=== PATIENT | female | born 1970 | race African-American/Black ===

== ENCOUNTER 2018-11-27 12:52 | Inpatient (IN) | payer BC, OTHER | END 2018-11-30 15:48 | disposition home or self-care (01) | LOC: JSAMEDAYSX 12:52 → JICU 22:40 → J8W 11-29 18:04 ==

== ENCOUNTER 2019-01-17 19:11 | Emergency (ER) | payer BC ==
[2019-01-17 19:32] VITALS: PULSE 64; TEMP 97.5; BMI 27.4
--- NOTE | 2019-01-17 20:29 | PDOC ---
History of Present Illness - General Chief Complaint: Injury Stated Complaint: FALL Time Seen by Provider: 01/17/19 19:37 History Source: Patient Exam Limitations: No Limitations - History of Present Illness Initial Comments: 01/18/19 06:11 HPI: 48F PMH HTN, recent c-spine surgery (11/27/18) c/o imbalance, tremors, and forgetfulness since the surgery. Pt tripped and fell today w/o head strike, LOC , or neck strain. Denies increased or new neck pain. She is concerned that her symptoms may have been exacerbated by the fall. After the surgery, patient was treated w/ amoxicillin for an ear infection but did not finish the course due to the size of the pill. Denies numbness, tingling, weakness, changes in vision/ hearing. Endorses recent chills. Denies cough, sore throat, runny nose, sick contacts. Denies SI. Pt states Dr. Clifton requesting Dr. Potter MEDS: oxycodone, diazepam Works for state, has been decreasing dose of oxycodone NKDA + occasional etoh, - smoking, - illicit drug use Past History - Past Medical History Allergies/Adverse Reactions: Allergies Allergy/AdvReac Type Severity Reaction Status Date / Time No Known Drug Allergies Allergy Verified 01/17/19 19:26 Home Medications: Ambulatory Orders Amlodipine Besylate 10 mg PO DAILY 11/24/18 Diazepam 10 mg PO BID 11/24/18 Labetalol HCl 100 mg PO BID 11/24/18 Oxycodone HCl [Oxycodone HCl ER] 10 mg PO Q4H PRN 11/24/18 Anemia: No Asthma: No Cancer: No Cardiac Disorders: Yes (enlarged heart) CVA: No COPD: No CHF: No Dementia: No Diabetes: No GI Disorders: No Disorders: No HTN: Yes Hypercholesterolemia: No Liver Disease: No Seizures: No Thyroid Disease: No - Surgical History Abdominal Surgery: No Appendectomy: No Cardiac Surgery: No Cholecystectomy: No Lung Surgery: No Neurologic Surgery: Yes (spinal fusion) Orthopedic Surgery: Yes (ARTHROSCOPY BILAT SHOULDER; LEFT WRIST SX) - Psycho Social/Smoking Cessation Hx Smoking History: Current every day smoker Have you smoked in the past 12 months: No Information on smoking cessation initiated: No Hx Alcohol Use: Yes Drug/Substance Use Hx: No Substance Use Type: Alcohol, Marijuana Hx Substance Use Treatment: No Review of Systems - Review of Systems Able to Perform ROS?: Yes Comments:: 01/18/19 06:11 ROS: CONSTITUTIONAL: ENDORSES chills, diaphoresis. Denies Fevers HEENT: Endorses imbalance. Denies photophobia, changes in vision / hearing, diplopia, blurry vision. Denies sore throat, rhinorrhea, ear pain. RESP: Denies SOB, cough CARD: Denies chest pain, palpitations GI: Denies N / V / D, abdominal pain, bloody stool, inability to tolerate PO : Denies dysuria, frequency SKIN: Denies rashes PSYCH: Endorses depressed mood due to recovery process but denies SA/SI NEURO: Denies numbness, tingling, weakness. Resting tremor of b/l hands. Is the patient limited Mauritian proficient: No *Physical Exam - Vital Signs Last Vital Signs Temp Pulse Resp BP Pulse Ox 97.5 F L 64 18 156/104 H 100 01/17/19 19:22 01/17/19 19:22 01/17/19 19:22 01/17/19 19:22 01/17/19 19:22 - Physical Exam Comments: 01/18/19 06:11 PE: VS wnl GEN: Well appearing, NAD, comfortable. AAOx3 HEENT: NC/AT, CN II-XII intact, EOMI, PERRLA. Pinpoint pupils. No facial asymmetry. Moist mucous membranes, oropharynx w/o erythema or exudates. Normal voice. Hard collar in place. CV: S1/S2, RRR, no m/r/g LUNG: CTAB, no wheezes, crackles, rales, rhonchi. GI: soft, ndnt, +BS, no guarding, no rebound. EXTREMITIES: No obvious deformities of all extremities. SKIN: warm, dry, normal turgor PSYCH: sluggish speech, flat affect, normal speech content, no SI. NEURO: 5/5 UE and LE strength b/l. Symmetric sensation b/l. No finger to nose ataxia. No pronator drift. Neg romberg. Normal gait. ED Treatment Course - LABORATORY CBC & Chemistry Diagram: 01/17/19 20:45 01/17/19 20:45 - RADIOLOGY Radiology Studies Ordered: Category Date Time Status CERVICAL SPINE CT W/O CONTR [CT] Stat CT Scan 01/17/19 20:[address] WITHOUT CONTRAST [CT] Stat CT Scan 01/17/19 20:14 Ordered Medical Decision Making - Medical Decision Making 01/17/19 20:20 MDM: 48F s/p c-spine surgery (11/27/18) c/o imbalance, tremors, and forgetfulness since procedure was done. Pt fell today w/o head strike or LOC, concerned it may have exacerbated symptoms. No new neck pain, neurologically intact. DDx - r/o traumatic fracture - CBC, CMP, etoh - UA, Ur Drug Screen - CT head and neck - f/u Dr. Clifton 01/17/19 20:[address] Clifton - CT head/neck. Brought up possibility pt might be withdrawing since she is cutting down on oxycodone. States if no medical indication, can discharge home w/ Neuro f/u (Dr. Potter) for full neurologic eval. If needs admission, reubenhomerlene and Dr. Potter c/s. 01/17/19 21:51 labs reviewed K 3.2 Replete w/ k-dur EKG 01/17/19 21:00 HR 71 IN 200 QRS 88 QTc 486 NSR w/ possible left atrial enlargement and nonspecific T wave abnormality. 01/17/19 22:55 CT Head and Neck demonstrates no acute fractures or pathology f/u urine studies 01/18/19 00:29 Urine reviewed DC home w/ neuro, pcp, and Dr. Clifton f/u, return precautions 01/18/19 06:10 Discharge - Discharge Information Problems reviewed: Yes Clinical Impression/Diagnosis: Tremor of both hands Fall Qualifiers: Encounter type: initial encounter Qualified Code(s): W19.XXXA - Unspecified fall, initial encounter Disposition: HOME - Admission No - Follow up/Referral Referrals: Neo Potter MD [Staff Physician] - Greg Clifton MD [Staff Physician] - - Patient Discharge Instructions Additional Instructions: You were evaluated in the Emergency Department Follow up with Neurology in the next 3-5 days regarding your symptoms. We have referred you to Dr. Potter (Neurology), please call the provided number to schedule an appointment. Follow up with Dr. Clifton as scheduled. Follow up with your Primary Care Doctor in the next 7 days regarding this ED visit. IMMEDIATELY return to the Emergency Department if you experience any of the following: - worsening of your symptoms - loss of sensation or motor function - ANYTHING that concerns you - Post Discharge Activity
[2019-01-17 21:01] VITALS: BP 128/81
[2019-01-17 21:11] LABS: BASO % 0.5 % (0-2.0); EOS % 3.3 % (0-4.5); HEMATOCRIT 34.9 % (32.4-45.2); HEMOGLOBIN 11.7 GM/dL (10.7-15.3); LYMPH % 43.1 % (8-40); MCH 31.4 pg (25.7-33.7); MCHC 33.5 g/dl (32.0-36.0); MEAN CELL VOLUME 93.7 fl (80-96); MONO % 9.7 % (3.8-10.2); NEUT % 43.4 % (42.8-82.8); PLATELET COUNT 253 K/MM3 (134-434); RBC 3.72 M/mm3 (3.60-5.2); RDW 12.6 % (11.6-15.6); WHITE BLOOD COUNT 4.4 K/mm3 (4.0-10.0)
[2019-01-17 21:33] LABS: ALBUMIN 3.8 g/dl (3.4-5.0); BILIRUBIN,TOTAL 0.4 mg/dL (0.2-1); BLOOD UREA NITROGEN 12.9 mg/dL (7-18); CALCIUM 9.1 mg/dL (8.5-10.1); POTASSIUM 3.2 mmol/L (3.5-5.1); TOT PROT 7.7 g/dl (6.4-8.2)
--- NOTE | 2019-01-17 22:18 | PDOC ---
Documentation entered by Caitie Miguel SCRIBE, acting as scribe for Bonnie Love DO. Bonnie Love DO: This documentation has been prepared by the Myriam isaacs Adrianna, SCRIBE, under my direction and personally reviewed by me in its entirety. I confirm that the documentation accurately reflects all work, treatment, procedures, and medical decision making performed by me. Attending Attestation - Resident Resident Name: ArtemioJoey - ED Attending Attestation I have performed the following: I have examined & evaluated the patient, The case was reviewed & discussed with the resident, I agree w/resident's findings & plan, Exceptions are as noted - HPI HPI: The patient is a 48 year old female, with a significant PMH of HTN and recent c- spine surgery (11/27/[address] Clifton), who presents to the ED for evaluation of imbalance and fall. Patient bent over to change her dogs wee-wee pad earlier today, when she lost her balance and fell over. Denies LOC or head contusion. She endorses feeling off balance, forgetful and tremulous since her surgery, and thinks her fall may have exacerbated these symptoms Off note, patient was prescribed amoxicillin for an ear infection following her surgery, but did not complete the course. Allergies: NKA, NKDA Surgical History: C3-C6 anterior cervical decompression and instrumented fusion Social History: Denies EtOH, tobacco, or illicit drug use - Physicial Exam PE: Constitutional: Awake, alert, oriented. No acute distress. Head: Normocephalic. Atraumatic Eyes: PERRL. EOMI. Conjunctivae are not pale. ENT: Mucous membranes are moist and intact. Posterior pharynx without exudates or erythema. Uvula midline. Neck: +Post-op hard collar in place. Supple. No lymphadenopathy. Cardiovascular: Regular rate. Regular rhythm. S1, S2 regular. Distal pulses are 2+ and symmetric. Pulmonary/Chest: No evidence of respiratory distress. Clear to auscultation bilaterally No wheezing, rales or rhonchi. Abdominal: Soft and nondistended. There is no tenderness. No rebound, guarding or rigidity. No organomegaly. No palpable masses. Good bowel sounds. Back: No CVA tenderness. Musculoskeletal: No edema. No cyanosis. No clubbing. Full range of motion in all extremities. Nocalf tenderness. Radial/pedal pulses are intact and 2+ bilaterally Skin: +Little red sore below the left nare. Skin is warm and dry. No petechiae. No purpura. Neurological: +Bilateral benign resting tremulous hands. Alert and oriented to person, place, and time. Cranial nerves II-XII are grossly intact. Normal speech. Strength is grossly symmetric. No sensory deficits. Psychiatric: Good eye contact. Normal interaction, affect and behavior. - Medical Decision Making 01/17/19 22:15 I, Dr. Bonnie Love, DO, attest that this document has been prepared under my direction and personally reviewed by me in its entirety. I further attest, that it accurately reflects all work, treatment, procedures and medical decision -making performed by me. a/p: 48yo female with hx of cervical spine sx about a month ago with a fall today -states she felt weak and was squatting down to change the puppy pad when she fell over -denies hitting her head or loc -states tremors x 1 weak and feels weak -called Dr. Clifton who recommended she come to the ER for imaging and labs and follow up with Dr. Pineda -pt with hand tremors b/l -pt wearing c collar -no new focal neuro findings -well healed incision to anterior neck -will send labs, imaging -will discuss with Elodia 01/17/19 22:17 resident discussed the case with Dr. Clifton - if no new findings on ct ok for outpt follow up with Dr. pineda 01/17/19 22:[address] and c spine without acute findings 01/18/19 00:27 pt with benzos in the uds ua neg 01/18/19 00:29 stable for dc to home to follow up with [facility] as an outpt for eval of the tremors ED Treatment Course - LABORATORY CBC & Chemistry Diagram: 01/17/19 20:45 01/17/19 20:45 - ADDITIONAL ORDERS Additional order review: Laboratory Results 01/17/19 01/17/19 20:45 20:45 Sodium 140 Potassium 3.2 L Chloride 103 Carbon Dioxide 30 Anion Gap 7 L BUN 12.9 Creatinine 1.0 Est GFR (CKD-EPI)AfAm 77.15 Est GFR (CKD-EPI)NonAf 66.57 Random Glucose 92 Calcium 9.1 Total Bilirubin 0.4 AST 13 L ALT 13 Alkaline Phosphatase 65 Total Protein 7.7 Albumin 3.8 Alcohol, Quantitative < 3.0 01/17/19 20:45 RBC 3.72 MCV 93.7 MCHC 33.5 RDW 12.6 MPV 9.0 Neutrophils % 43.4 D Lymphocytes % 43.1 H D Monocytes % 9.7 Eosinophils % 3.3 D Basophils % 0.5 - RADIOLOGY Radiograph Interpretation: EXAM#: TYPE/EXAM: RESULT: [id number] CT/HEAD CT WITHOUT CONTRAST HISTORY PROVIDED : Fall IMPRESSION: No evidence of acute intracranial pathology. Reported By: Ibrahima Lane MD 01/17/19 22:44 EXAM#: TYPE/EXAM: RESULT: [id number] CT/CERVICAL SPINE CT W/O CONTR History provided: Fall. IMPRESSION: No fracture or acute pathology. Reported By: Ibrahima Lane MD 01/17/19 22:46
[2019-01-17] MEDS ORDERED: POTASSIUM CHLORIDE TABS 20 MEQ TABLET.ER (FP) PO ONE (23:01)
[2019-01-17] MEDS ORDERED: POTASSIUM CHLORIDE TABS 10 MEQ TABLET.ER (FP) ONE (23:07)
[2019-01-18 00:21] LABS: EPI CELLS 8.7 /HPF (0-5/HPF); HYALINE CASTS 1 /lpf (0-8); URINE APPEARANCE CLEAR; URINE BACTERIA 94.4 /hpf (NEGATIVE); URINE BILIRUBIN NEGATIVE (NEGATIVE); URINE COLOR YELLOW; URINE GLUCOSE (UA) NEGATIVE (NEGATIVE); URINE KETONE NEGATIVE (NEGATIVE); URINE LEUK ESTERASE TRACE (NEGATIVE); URINE NITRITE NEGATIVE (NEGATIVE); URINE PROTEIN NEGATIVE (NEGATIVE); URINE RBC 0 /hpf (0-4); URINE UROBILINOGEN 0.2 mg/dL (0.2-1.0); URINE WBC 2 /hpf (0-5)
[2019-01-18 00:25] LABS: COCAINE, UR NEGATIVE ng/ml (CUTOFF=300); METHADONE, UR NEGATIVE ng/ml (CUTOFF=300); OPIATES, URI NEGATIVE ng/ml (CUTOFF=300); PHENCYCLIDINE,URINE NEGATIVE ng/ml (CUTOFF=25); URINE AMPHETAMINES NEGATIVE ng/ml (CUTOFF=500); URINE BARBITURATES NEGATIVE ng/ml (CUTOFF=200)
[2019-01-18 00:27] LABS: URINE BENZODIAZEPINES POSITIVE ng/ml (CUTOFF=200)
--- NOTE | 2019-01-18 12:05 | EKG ---
Test Reason : Blood Pressure : / mmHG Vent. Rate : 071 BPM Atrial Rate : 071 BPM P-R Int : 200 ms QRS Dur : 088 ms QT Int : 448 ms P-R-T Axes : 048 -12 -06 degrees QTc Int : 486 ms NORMAL SINUS RHYTHM POSSIBLE LEFT ATRIAL ENLARGEMENT NONSPECIFIC T WAVE ABNORMALITY ABNORMAL ECG NO PREVIOUS ECGS AVAILABLE Confirmed by DINESH MINAYA MD ([id number]) on 01/18/2019 12:05:33 PM Referred By: Confirmed By:DINESH MINAYA MD
== END 2019-01-18 00:40 | disposition home or self-care (01) ==
LOC: JER 19:11
DX: R25.1 Tremor, unspecified (principal); Z98.890 Other specified postprocedural states; I10 Essential (primary) hypertension
CPT/HCPCS: 36415; 70450-TC; 72125-TC; 80053; 80307; 81003; 85025; 93005; 93010; 99284-25